=== PATIENT | female | born 1980 | race Caucasian/White ===

== ENCOUNTER 2017-03-02 20:48 | Emergency (ER) | payer MEDICARE, OTHER | END 2017-03-02 23:30 | disposition home or self-care (01) | LOC: ER1 20:48 | DX: M79.604 Pain in right leg (principal); R22.41 Localized swelling, mass and lump, right lower limb; I10 Essential (primary) hypertension; Z88.1 Allergy status to other antibiotic agents; Z91.040 Latex allergy status | CPT/HCPCS: 99283 ==

== ENCOUNTER → 2017-08-09 | Outpatient (CLI) | payer MEDICARE, OTHER | LOC: LAB 08:11 | DX: E34.9 Endocrine disorder, unspecified (principal) | CPT/HCPCS: 36415; 82533; 84402; 84403 ==

== ENCOUNTER 2020-11-22 16:46 | Emergency (ER) | payer MEDICARE, OTHER ==
[~2020-11-22 16:46] MED LIST: BACITRAYCIN PLU28 GM TP; BACTRIM DS TAB1 EACH PO; BENTYL 20MG TAB20 MG PO; CEFUROXIME500 MG PO; DIFLUCAN200 MG PO; IBUPROFEN600 MG PO; NAPROSYN500 MG PO; TORADOL 10 MG T10 MG PO; VISTARIL25 MG PO; Voltaren Gel 1 % TOP; ZOFRAN ODT 4 MG4 MG PO; ZOFRAN4 MG PO
[2020-11-22 20:35] LABS: HEMOGLOBIN 13.7 gm/dl (12.3-15.3); RED BLOOD COUNT 4.57 M/UL (4.00-5.10); WHITE BLOOD COUNT 14.3 K/UL (4.5-11.0)
[2020-11-22 20:52] LABS: BUN/CREATININE RATIO 17 (0-10)
== END 2020-11-22 22:05 | disposition home or self-care (01) ==
LOC: ER1 16:46
PROVIDERS: Emergency Medicine
DX: R30.0 Dysuria (principal); R10.30 Lower abdominal pain, unspecified; M54.9 Dorsalgia, unspecified; I10 Essential (primary) hypertension; Z88.1 Allergy status to other antibiotic agents
CPT/HCPCS: 80053; 81001; 83690; 85025; 87086; 96365; 99284; J0696; Q9967

== ENCOUNTER 2021-01-13 13:42 | Emergency (ER) | payer MEDICARE, OTHER ==
[2021-01-13 18:29] LABS: HEMOGLOBIN 14.3 gm/dl (12.3-15.3); RED BLOOD COUNT 4.68 M/UL (4.00-5.10); WHITE BLOOD COUNT 10.7 K/UL (4.5-11.0)
[2021-01-13 18:46] LABS: BUN/CREATININE RATIO 18 (0-10)
[2021-01-13] MEDS ORDERED: CEPHALEXIN500 MG PO (20:00)
[2021-01-13] MEDS ORDERED: TORADOL 10 MG T10 MG PO (20:00)
== END 2021-01-13 20:11 | disposition home or self-care (01) ==
LOC: ER1 13:42
PROVIDERS: Physician Assistant
DX: R07.89 Other chest pain (principal); N39.0 Urinary tract infection, site not specified; E11.9 Type 2 diabetes mellitus without complications; I10 Essential (primary) hypertension; Z86.16 Personal history of COVID-19; Z90.710 Acquired absence of both cervix and uterus; Z90.49 Acquired absence of other specified parts of digestive tract; Z88.8 Allergy status to other drugs, medicaments and biological substances; Z88.1 Allergy status to other antibiotic agents
CPT/HCPCS: 71046; 76881; 80053; 81001; 83690; 85025; 87086; 96372; 99283; J1885

== ENCOUNTER → 2021-02-18 | Outpatient (CLI) | payer MEDICARE, OTHER ==
[~2021-02-18] MED LIST changes: +BENTYL 10MG CAP10 MG PO; +CEPHALEXIN500 MG PO; +COLACE 100MG C100 MG PO; +IBUPROFEN800 MG PO; +OMNICEF 300 MG300 MG PO
== END ==
LOC: HEART 5 11:09
DX: J98.6 Disorders of diaphragm (principal); R94.2 Abnormal results of pulmonary function studies; F17.210 Nicotine dependence, cigarettes, uncomplicated
CPT/HCPCS: 94010

== ENCOUNTER → 2021-03-07 | Outpatient (CLI) | payer MEDICARE, OTHER | LOC: MRI 13:00 | DX: M54.12 Radiculopathy, cervical region (principal); M50.321 Other cervical disc degeneration at C4-C5 level | CPT/HCPCS: 72141 ==

== ENCOUNTER → 2021-03-17 | Outpatient (CLI) | payer MEDICARE, OTHER | LOC: KOH-I 09:01 | DX: M79.672 Pain in left foot (principal); M25.572 Pain in left ankle and joints of left foot; M25.472 Effusion, left ankle; M79.89 Other specified soft tissue disorders | CPT/HCPCS: 73610; 73630 ==

== ENCOUNTER → 2021-03-30 | Outpatient (CLI) | payer MEDICARE, OTHER | LOC: KOH-I 09:15 | DX: S96.812A Strain of other specified muscles and tendons at ankle and foot level, left foot, initial encounter (principal); M72.2 Plantar fascial fibromatosis; M25.475 Effusion, left foot | CPT/HCPCS: 73718 ==

== ENCOUNTER 2021-04-16 00:56 | Emergency (ER) | payer MEDICARE, OTHER ==
[~2021-04-16 00:56] MED LIST changes: -BENTYL 10MG CAP10 MG PO; -COLACE 100MG C100 MG PO; -IBUPROFEN800 MG PO; -OMNICEF 300 MG300 MG PO
[2021-04-16 02:43] LABS: HEMOGLOBIN 14.6 gm/dl (12.3-15.3); RED BLOOD COUNT 4.82 M/UL (4.00-5.10); WHITE BLOOD COUNT 9.4 K/UL (4.5-11.0)
[2021-04-16 03:21] LABS: BUN/CREATININE RATIO 15 (0-10)
[2021-04-16] MEDS ORDERED: BENTYL 10MG CAP10 MG PO (05:02)
[2021-04-16] MEDS ORDERED: COLACE 100MG C100 MG PO (05:02)
[2021-04-16] MEDS ORDERED: IBUPROFEN800 MG PO (05:02)
[2021-04-16] MEDS ORDERED: OMNICEF 300 MG300 MG PO (05:04)
== END 2021-04-16 05:17 | disposition home or self-care (01) ==
LOC: ER1 00:56
PROVIDERS: Emergency Medicine
DX: N39.0 Urinary tract infection, site not specified (principal); I10 Essential (primary) hypertension; Z20.822 Contact with and (suspected) exposure to COVID-19
CPT/HCPCS: 80053; 81001; 85025; 96374; 99284; J0696; U0002

== ENCOUNTER → 2021-08-09 | Outpatient (CLI) | payer MEDICARE, OTHER ==
[~2021-08-09] MED LIST changes: +BENTYL 10MG CAP10 MG PO; +COLACE 100MG C100 MG PO; +IBUPROFEN800 MG PO; +OMNICEF 300 MG300 MG PO
== END ==
LOC: KOH-I 10:47
DX: M25.572 Pain in left ankle and joints of left foot (principal); M79.672 Pain in left foot
CPT/HCPCS: 73610; 73630

== ENCOUNTER 2021-10-02 01:35 | Emergency (ER) | payer MEDICARE, OTHER ==
[2021-10-02] MEDS ORDERED: DOXYCYCLINE HY100 M2 PO (01:49)
[2021-10-02] MEDS ORDERED: BENADRYL 50MG C50 MG PO (01:49)
[2021-10-02] MEDS ORDERED: PREDNISONE 20 M20 MG PO (01:49)
== END 2021-10-02 01:56 | disposition home or self-care (01) ==
LOC: ER1 01:35
DX: T78.40XA Allergy, unspecified, initial encounter (principal); L03.116 Cellulitis of left lower limb; L03.115 Cellulitis of right lower limb; L60.0 Ingrowing nail; I10 Essential (primary) hypertension; Z90.49 Acquired absence of other specified parts of digestive tract; Z90.710 Acquired absence of both cervix and uterus; Z88.1 Allergy status to other antibiotic agents; Z91.040 Latex allergy status; Z88.8 Allergy status to other drugs, medicaments and biological substances; Z79.899 Other long term (current) drug therapy
CPT/HCPCS: 99283

== ENCOUNTER 2021-10-27 11:53 | Emergency (ER) | payer MEDICARE, OTHER ==
[~2021-10-27 11:53] MED LIST changes: +BENADRYL 50MG C50 MG PO; +DOXYCYCLINE HY100 M2 PO; +PREDNISONE 20 M20 MG PO
== END 2021-10-27 16:28 | disposition home or self-care (01) ==
LOC: ER1 11:53
DX: M54.50 Low back pain, unspecified (principal); I10 Essential (primary) hypertension; K21.9 Gastro-esophageal reflux disease without esophagitis; Z87.891 Personal history of nicotine dependence; Z88.1 Allergy status to other antibiotic agents; W01.0XXA Fall on same level from slipping, tripping and stumbling without subsequent striking against object, initial encounter; Y92.009 Unspecified place in unspecified non-institutional (private) residence as the place of occurrence of the external cause
CPT/HCPCS: 72131; 72192; 99283